=== PATIENT | male | born 1980 | race Caucasian/White ===

== ENCOUNTER 2022-08-03 12:10 | Emergency (ER) | payer SELFPAY ==
[~2022-08-03] VITALS: Ht 170.2 cm; Wt 99.3 kg
[2022-08-03 12:13] VITALS: BP 170/103
[2022-08-03 12:31] VITALS: BP 170/103
--- NOTE | 2022-08-03 12:37 | NUR ---
PT AMB TO BED 8
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
[2022-08-03] MEDS ORDERED: LIDOCAINE MPF 1% 10 MG/ML VIAL INJ ONE (13:20)
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
[2022-08-03] MEDS ORDERED: BACI1PAC6 TP (15:37)
[2022-08-03] MEDS ORDERED: CEPH-588 PO (15:37)
[2022-08-03] MEDS ORDERED: ACET-10509 PO (15:37)
[2022-08-03] MEDS ORDERED: ceFAZolin 1,000 MG VIAL IM ONE (15:40)
[2022-08-03] MEDS ORDERED: BACITRACIN OINT 500 UNITS/GM PKT TP ONE (15:42)
[2022-08-03] MEDS ORDERED: WATER STERILE 10 ML MC ONE (15:44)
[2022-08-03 17:03] VITALS: BP 152/89
--- NOTE | 2022-08-03 17:03 | NUR ---
Patient discharged with v/s stable. Written and verbal after care instructions given. Patient alert, oriented and verbalized understanding of instructions. Ambulatory with steady gait. All questions addressed prior to discharge. ID band removed. Patient advised to follow up with PMD. Rx of Tylenol, Bacitracin and Keflex given. Opportunity to ask questions provided and answered. WORK NOTE HANDED TO PATIENT.
--- NOTE | 2022-08-03 17:19 | NUR ---
The patient's care was reviewed and supervised by Iris Suarez RN.
== END 2022-08-03 17:03 | disposition home or self-care (01) ==
LOC: EDSEX 12:10 → MED 12:10
DX: S51.812A Laceration without foreign body of left forearm, initial encounter (principal); S31.119A Laceration without foreign body of abdominal wall, unspecified quadrant without penetration into peritoneal cavity, initial encounter; Y04.8XXA Assault by other bodily force, initial encounter; Y93.89 Activity, other specified; Y92.89 Other specified places as the place of occurrence of the external cause; Y99.8 Other external cause status
CPT/HCPCS: 12002; 71045; 90471; 90715; 96372; 99285; J0690; J2001

== ENCOUNTER 2022-08-05 09:36 | Emergency (ER) | payer SELFPAY ==
[~2022-08-05] VITALS: Ht 175.3 cm; Wt 83.9 kg
[~2022-08-05 09:36] MED LIST: ACET-10509 PO; BACI1PAC6 TP; CEPH-588 PO
[2022-08-05 09:54] VITALS: BP 134/79
[2022-08-05] MEDS ORDERED: BACITRACIN OINT 500 UNITS/GM PKT TP ONE (11:50)
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
--- NOTE | 2022-08-05 12:05 | NUR ---
PER ER MID LEVEL, WOUNDS X3, TO ANTERIOR ABDOMEN AND ANTERIOR FOREARM, DRESSED WITH NON ADHERENT.
[2022-08-05 12:33] VITALS: BP 130/84
--- NOTE | 2022-08-05 12:33 | NUR ---
Patient discharged with v/s stable. Written and verbal after care instructions given. Patient verbalized understanding. Ambulatory with steady gait. All questions addressed prior to discharge. Advised to follow up with PMD.
--- NOTE | 2022-08-05 13:07 | NUR ---
The patient's care was reviewed and supervised by ED Agency Nurse 9, RN, RN.
== END 2022-08-05 12:33 | disposition home or self-care (01) ==
LOC: MED 09:36
DX: Z48.01 Encounter for change or removal of surgical wound dressing (principal); Z79.899 Other long term (current) drug therapy; Z79.2 Long term (current) use of antibiotics
CPT/HCPCS: 99282

== ENCOUNTER 2022-08-11 10:23 | Emergency (ER) | payer MEDICAID ==
[~2022-08-11] VITALS: Ht 170.2 cm; Wt 101.3 kg
[2022-08-11 11:04] VITALS: BP 182/106
--- NOTE | 2022-08-11 11:50 | NUR ---
NO NURSING INTERVENTIONS PERFROEMD
--- NOTE | 2022-08-11 11:54 | NUR ---
Patient discharged with v/s stable. Written and verbal after care instructions given and explained for suture removal care and preventing hypertension. Patient verbalized understanding. Ambulatory with steady gait. All questions addressed prior to discharge. Advised to follow up with PMD.
--- NOTE | 2022-08-11 11:54 | NUR ---
42 Y/O M BIB SELF FOR SUTURE REMOVAL. SUTURE PLACED 08/05/22. BP 182/106 AT THIS TIME. DENIES PAIN. PMH: DENIES NKDA
== END 2022-08-11 11:54 | disposition home or self-care (01) ==
LOC: MED 10:23
DX: S31.119D Laceration without foreign body of abdominal wall, unspecified quadrant without penetration into peritoneal cavity, subsequent encounter (principal); S51.812D Laceration without foreign body of left forearm, subsequent encounter; Z48.02 Encounter for removal of sutures; X58.XXXD Exposure to other specified factors, subsequent encounter
CPT/HCPCS: 99281